=== PATIENT | female | born 1975 | race Caucasian/White ===

== ENCOUNTER → 2018-06-27 09:39 | Outpatient (CLI) | payer OTHER, SELFPAY ==
--- NOTE | 2018-06-27 09:52 | MRI_ITS ---
STUDY: MRI RIGHT ANKLE WITHOUT CONTRAST REASON FOR EXAM: Female, 42 years old. Achilles tendinitis TECHNIQUE: Standardized fat and water weighted pulse sequences were obtained in all 3 orthogonal planes. COMPARISON: None. FINDINGS: Normal subcutis adipose space. Normal posterior tibialis tendon. Normal flexor digitorum longus tendon. Normal flexor hallucis longus tendon. Normal peroneus longus and brevis tendons. Normal tibialis anterior tendon. Normal extensor hallucis longus tendon. Normal extensor digitorum longus tendons. Normal Achilles tendon and teno-osseous insertion. Normal plantar fascia. Normal plantar calcaneal tubercles. Normal intrinsic muscles of the rearfoot. Normal distal tibiofibular syndesmotic ligamentous complex. Normal lateral ligamentous complex. Normal subtalar ligaments and sinus tarsi. Normal deltoid ligamentous complexes. Normal plantar calcaneonavicular (spring) ligament. There is a joint effusion of the tibiotalar articulation with capsular distension. Normal talar dome. Normal subtalar articulations. Normal talonavicular articulation. Normal calcaneocuboid articulation. Normal navicular-cuneiform articulations. MRI/Lower Ext Joint Only (Routine) IMPRESSION: Normal MRI of the ankle and rearfoot. No ligamentous or tendinous tear. Electronically Signed: Justin Aguilera MD at 17:33 EDT , Service support ,
--- NOTE | 2018-06-27 09:53 | MRI_ITS ---
STUDY: MRI RIGHT MIDFOOT REASON FOR EXAM: Female, 42 years old. Pain. TECHNIQUE: Standardized fat and water weighted pulse sequences were obtained in all 3 orthogonal planes. COMPARISON: None. FINDINGS: Normal talonavicular articulation. Normal calcaneocuboid articulation. Normal navicular-cuneiform articulations. Normal intercuneiform articulations. Normal first tarsometatarsal articulation. Normal Lisfranc ligament. Normal second and third tarsometatarsal articulations. Normal cuboid fourth and cuboid fifth tarsometatarsal articulation. Normal first through fifth metatarsi. There is no demonstrated fracture of the metatarsal bones. There is effusion of the first MTP joint. There is intermetatarsal bursitis of the third interspace. There is adjacent 0.5 cm interdigital diminished T1 signal consistent with neuroma, series 4 image 12/36. Normal tibialis anterior tendon. Normal extensor hallucis longus tendon. Normal extensor digitorum longus tendons. Normal peroneus longus tendon and distal insertion. Normal peroneus brevis tendon and distal insertion. Normal intrinsic muscles of the mid and forefoot region. Normal extensor digitorum brevis muscle. MRI/Lower Ext/No Jt/w/o IMPRESSION: No fracture or periosteal reaction. Interdigital neuroma at the third interspace. Electronically Signed: Justin Aguilera MD at 17:37 EDT , Service support ,
== END ==
PROVIDERS: Family Provider Internal Medicine; PCP Internal Medicine; Referring Provider Podiatrist; Visit Provider Podiatrist
DX: M72.2 Plantar fascial fibromatosis (principal); M76.60 Achilles tendinitis, unspecified leg; M77.9 Enthesopathy, unspecified
CPT/HCPCS: 73718; 73721

== ENCOUNTER 2022-09-17 12:33 | Emergency (ER) | payer OTHER, SELFPAY ==
[2022-09-17 12:34] VITALS: BP 120/69; PULSE 82; RESP 18; TEMP 36.1; O2SAT 100; BMI 25.3
[2022-09-17] MEDS: 0.9% Normal Saline 1,000 ML 999 ML IV (13:57)
[2022-09-17] MEDS: DiphenhydrAMINE 50 MG/ML Syringe 25 MG IV (14:00)
[2022-09-17] MEDS: Metoclopramide 10 MG/2 ML Vial IV (14:01)
[2022-09-17 14:02] LABS: Absolute Lymphocyte Count 0.93 X10^3/uL (0.83-4.51); Absolute Neutrophil Count 5.7 X10^3/uL (2.0-7.7); Basophil# 0.05 X10^3/uL; Basophil% 0.6 % (0-1); Eosinophil# 0.25 X10^3/uL; Eosinophils% 3.2 % (0-5); Hematocrit 38.9 % (37-47); Hemoglobin 12.8 g/dL (12.0-15.0); Lymphocyte # 0.93 X10^3/ul (0.83-4.51); Mean Corp Hgb Conc 32.9 g/dL (32-36); Mean Corpuscular Volume 91.1 fL (81-99); Mean Platelet Vol. 9.9 fl (6.2-12.0); Monocyte# 0.75 X10^3/uL; Monocyte% 9.7 % (0-10); NRBC Flagged by Analyzer 0 % (0-5); Neutrophil # 5.73 X10^3/uL (2.7-7.7); Neutrophil % 74.2 % (47-70); Platelet Count 229 K/mm3 (150-450); RBC Distribution Width CV 13.1 % (11.6-14.6); Red Blood Count 4.27 M/mm3 (4.2-5.4); White Blood Count 7.7 K/mm3 (4.4-11.0)
--- NOTE | 2022-09-17 14:29 | EDS_ITS ---
HPI History of Present Illness Chief Complaint: Headache Informant: patient Onset/Context/Timing Onset: Weeks (1) Context: Gradual Timing: Continuous Quality -Headache: Positive for Dull, Throbbing and Tightness Location: Generalized Worsened by: Light, activity Relieved by: Nothing Associated Symptoms/Injury Associated Symptoms: Positive for Fever (Subjective low-grade fever), Nausea, Numbness, Blurred Vision and Photophobia; Negative for Vomiting, Sore Throat, Sinus Pressure, Tingling, Preceding Aura or Visual Loss Narrative Narrative: Patient presents with headache that has been constant for the last week. Sari ent states it came on gradually. Patient states this started on the right side of her head but now is behind her eyes and into her neck and shoulders bilaterally. Patient states it has been constant for the last week. Patient states it is worse with lights and with any activity. Patient dates nothing seems to help with it. Patient admits to a low-grade fever at home. Patient admits to some nausea but denies any vomiting. Patient states she did have some numbness a few days ago but states this has resolved. Patient admits to some blurry vision. Patient also complains of some redness to her right breast. Patient admits to some pain to the area. Patient states she was started on doxycycline for this recently. [facility] Medical History (Updated 09/17/22 @ 14:[address] Federico Boone DO) Migraines Trigeminal neuralgia Home Medications NK 09/17/22 [History Last Taken Unknown] Allergy/AdvReac Type Severity Reaction Status Date / Time acetaminophen [From Vicodin] AdvReac Nausea Verified 09/17/22 12:36 hydrocodone [From Vicodin] AdvReac Nausea Verified 09/17/22 12:36 Surgical History (Updated 09/17/22 @ 14:[address] Federico Boone DO) History of section Social History Smoking Status: Never smoker ROS ROS ED Constitutional Constitutional ED: Reports fever(s) and subjective; Denies chills Eyes Eyes: Reports blurry vision; Denies diplopia ENT ENT ED: Denies rhinorrhea or sore throat Cardiovascular Cardiovascular: Denies chest pain or palpitations Respiratory/Chest Respiratory/Chest: Denies cough or dyspnea Gastrointestinal Gastrointestinal: Reports nausea; Denies vomiting Genitourinary Genitourinary ED: Denies dysuria or hematuria Musculoskeletal Musculoskeletal: Reports neck pain; Denies back pain Integumentary Reports rash; Denies abscess Neurologic Neurologic: Reports headache(s); Denies weakness Allergic/Immunologic Allergic/Immunologic ED: Denies mouth swelling or urticaria EXAM Physical Exam Const Vital Signs: 09/17/22 12:34 Temperature 97 F L Temperature Source Temporal Pulse Rate 82 Respiratory Rate 18 Blood Pressure 120/69 Blood Pressure Mean 86 Pulse Ox 100 Oxygen Delivery Method Room Air Positive well nourished and well developed General Appearance ED: well developed HEENT Reports moist mucous membranes Neck supple and no JVD Chest Wall Chest Narrative: There is mild edema and tenderness over the right breast. There is erythema. T here is some mild induration. There is no fluctuance. There is no discharge or drainage. Resp normal respiratory effort and clear to auscultation bilaterally Cardio regular rate, regular rhythm and no murmurs GI normal to inspection, nondistended, normoactive bowel sounds and non-tender Palpation: soft Extremity normal to inspection General Extremety ED: Negative for edema or tenderness General Extremity: Negative for edema Neuro oriented x3, CN's II-XII intact bilaterally and no sensory deficits noted Sensorium / Orientation: awake and alert Motor Exam: strength 5/5 throughout Psych mental status grossly normal Skin no rashes or lesions noted MDM MDM MDM Narrative Medical decision making narrative: Differential diagnosis includes mastitis, cellulitis, migraine headache, cluster headache, and tension headache. She will be obtained to assess for leukocytosis and anemia. Basic metabolic profile will be obtained to assess for electrolyte abnormality and renal function. Lab Data Lab results narrative: CBC was reviewed and was within normal limits. Basic metabolic profile was reviewed and was within normal limits. Labs: Laboratory Results - last 24 hr 09/17/22 13:55 WBC 7.7 RBC 4.27 Hgb 12.8 Hct 38.9 MCV 91.1 MCH 30.0 MCHC 32.9 RDW Std Deviation 44.0 H RDW Coeff of Maria C 13.1 Plt Count 229 MPV 9.9 Immature Gran % (Auto) 0.300 Neut % (Auto) 74.2 H Lymph % (Auto) 12.0 L [place] % (Auto) 9.7 Eos % (Auto) 3.2 Baso % (Auto) 0.6 Absolute Neuts (auto) 5.7 Absolute Lymphs (auto) 0.93 Nucleated RBC % 0 Treatment and Re-Evaluation Narrative: Patient was given IV fluids, Reglan, and Benadryl. Patient was given a dose of Unasyn. Patient states her pain behind her eyes has resolved. Patient still has some mild neck pain. Patient was given a dose of Toradol here. Patient was instructed to rest in a dark quiet room. Patient was instructed to take her antibiotics until gone. Patient was instructed to follow-up with her primary care physician in 5 to 7 days. Patient understood and was agreeable with the plan. All questions were answered. Discharge Plan Triage Chief Complaint: Headache ED Provider: Federico Boone Dx/Rx/DC Orders Clinical Impression: Headache, migraine, Cellulitis of right breast Instructions: ED Cellulitis, ED, Migraine (Classical) Prescriptions: No Action NK Primary Care Provider: Lesa Witt Referrals: Lesa Witt MD [Primary Care Provider] - 5-7 Days Disposition Disposition: Home, Self Care
[2022-09-17 14:30] LABS: Anion Gap 7 (5-15); BUN 9 mg/dL (7-18); BUN/Creat Ratio 12.6 RATIO (10-20); Calcium,Total 8.7 mg/dL (8.5-10.1); Chloride 109 mmol/L (98-107); Creatinine, Serum 0.72 mg/dL (0.55-1.02); EST Glomerular Filtration Rate 93 mL/min (>60); Est Glom Filt Rate - Afr Amer 113 mL/min (>60); Estimated Creatinine Clearance 92.37 ml/min; Glucose 98 mg/dL (74-106); Potassium 3.7 mmol/L (3.5-5.1); Sodium Level 140 mmol/L (136-145)
[2022-09-17] MEDS: Ketorolac 30 MG/ML Syringe IV (14:52)
== END 2022-09-17 15:57 | disposition home or self-care (01) ==
PROVIDERS: Emergency Provider Emergency Medicine; PCP Internal Medicine; Visit Provider Emergency Medicine
DX: G43.909 Migraine, unspecified, not intractable, without status migrainosus (principal); N61.0 Mastitis without abscess
CPT/HCPCS: 80048; 85025; 96365; 96366; 96375; 99284; J7030; A4216; J0295